=== PATIENT | female | born 1950 | race Caucasian/White ===

== ENCOUNTER → 2018-10-10 | Outpatient (CLI) | payer MEDICARE, OTHER ==
[~2018-10-10] MED LIST: ASPIRIN EC81 M1; LISINOPRIL10 MG; PERCOCET 5-3251 EACH PO
== END ==
LOC: M.RAD 09:54
DX: Z12.31 Encounter for screening mammogram for malignant neoplasm of breast (principal)

== ENCOUNTER → 2018-10-12 | Outpatient (CLI) | payer MEDICARE, OTHER | LOC: M.RAD 10-11 09:37 | DX: N63.11 Unspecified lump in the right breast, upper outer quadrant (principal) ==

== ENCOUNTER → 2018-10-23 | Outpatient (CLI) | payer MEDICARE, OTHER ==
--- NOTE | 2018-10-26 15:07 | PATH ---
[address] [address] PATHOLOGY RPT PROCEDURE Name: ROYA MACEDO Room: [facility].#: [id number] Admission: 10/23/18 Date of : 52 Discharge: Report #: [id number] Path Case #: [id number] [facility] Accession Number: [id number] . 01 Material submitted: . PART A: breast - RIGHT BREAST NODULE. Modifiers: right PART B: breast - RIGHT BREAST CALCIFICATIONS. Modifiers: right . 01 Clinical history: . A. Right breast nodule, stereotactic biopsy B. Right breast calcifications, stereotactic biopsy . 02 Diagnosis: A. 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 SEE COMMENT. . B. Right breast calcifications, stereotactic biospy: - DCIS, NUCLEAR GRADE II, CRIBRIFORM TYPE WITH FOCAL NECROSIS, SPANNING 3 MM, WITH CALCIFICATIONS. SEE COMMENT. (SHELDON:clyde; 10/26/2018) QMS/10/26/2018 . 02 Comment: A. Specimen type: Stereotactic biopsy Tumor site: Right breast Tumor quantitation: Approximately 20% of submitted tissues (A) Histologic type: Ductal adenocarcinoma Histologic grade: Low grade Tubules, nuclei and mitoses: 2, 2, 1 LVSI: Not identified Microcalcifications: Identified Markers: Breast tumor profile pending Block: A2 . Several cores in A2 (only) show a well-circumscribed nodule of infiltrating ductal adenocarcinoma. Properly controlled immunohistochemical stains performed on A2 show the following results, supporting the diagnosis: . P63: Negative Smooth muscle myosin heavy chain: Negative . Diagnostic infiltrating tumor is seen only in A2 and separate from the invasive tumor, seen in A3, is intermediate nuclear grade DCIS suggesting possible extensive intraductal component. Small foci of DCIS are also seen in specimen B. Breast tumor profile studies are pending [place] [place] [address] PATHOLOGY RPT PROCEDURE Name: ROYA MACEDO Room: [facility]#: [id number] Admission: 10/23/18 Date of : 52 Discharge: Report #: [id number] Path Case #: [id number] will be the subject of an addendum report. Specimens A and B reviewed with Dr. Giorgi Becerril, who agrees with the diagnoses. . Krista (acting [facility] Breast Navigator) notified at approximately 1255 on 10/26/2018. . (SHELDON:clyde; 10/26/2018) . 02 Electronically signed: . Mario Davisdon MD, Pathologist NPI- [id number] . 01 Gross description: . A. Received in formalin labeled "Roya Macedo, right breast nodule," are multiple needle cores of yellow-marquez fibrofatty tissue measuring 2.8 x 2.4 x 0.4 cm in aggregate dimensions. The tissue is submitted in its entirety in cassettes A1 through A3. The cold ischemic time is 7 minutes. The total formalin fixation time is greater than 7 hours and less than 72 hours. . B. Received in formalin labeled "Roya Macedo, right breast calcifications," are multiple needle cores of yellow-marquez fibrofatty tissue measuring 1.8 x 1.5 x 0.5 cm in aggregate dimensions. Additionally received in the same container is a blue plastic cassette containing multiple needle cores of yellow-marquez fibrofatty tissue measuring 2.8 x 1.8 x 0.5 cm in aggregate dimensions. The tissue in the cassette is transferred to cassette B1 and the remaining tissue is submitted in its entirety in cassettes B2 and B3. The cold ischemic time is 7 minutes. The total formalin fixation time is greater than 7 hours and less than 72 hours. (TSD; 10/23/2018) TOB/TOB . 02 Pathologist provided ICD-10: C50.911, D05.11 . 02 CPT . 627380, 796796 Specimen Comment: A courtesy copy of this report has been sent to Specimen Comment: [phone], , . Specimen Comment: Report sent to ,DR MCMILLAN / DR WOODALL Performed at: [address], [place], [place] [id number] MD Aric Lind MD Phone: [phone] Performed at: [facility] [address], [place], [place] [id number] MD Mario Davidson MD Phone: [phone]
== END | disposition home or self-care (01) ==
LOC: M.RAD 11:00
DX: C50.911 Malignant neoplasm of unspecified site of right female breast (principal); R92.1 Mammographic calcification found on diagnostic imaging of breast; Z79.82 Long term (current) use of aspirin; Z79.891 Long term (current) use of opiate analgesic; Z79.899 Other long term (current) drug therapy

== ENCOUNTER → 2018-11-07 | Outpatient (CLI) | payer MEDICARE, OTHER | LOC: M.LAB 12:18 → M.MRI 14:30 | PROVIDERS: Surgery | DX: N63.22 Unspecified lump in the left breast, upper inner quadrant (principal) ==

== ENCOUNTER → 2018-11-12 | Outpatient (CLI) | payer MEDICARE, OTHER ==
--- NOTE | 2018-11-14 10:07 | PATH ---
[address] [address] PATHOLOGY RPT PROCEDURE Name: BRENDA MACEDO ELDER Room: [facility] Issa#: [id number] Admission: 11/12/18 Date of : 52 Discharge: Report #: [id number] Path Case #: [id number] [facility] Accession Number: [id number] . 01 Material submitted: . breast - LEFT BREAST, 2:00, 6CM FROM NIPPLE. Modifiers: left, 2:00 . 01 Clinical history: . 0.48 x 0.23 x 0.56 cm mass . 02 Diagnosis: Breast mass, left, core needle biopsy: - Adipose tissue and scant ductal epithelium with focal microscopic simple cysts - Tiny focal area of fibrosis. - No evidence of atypia or malignancy. (GLEN:celeste; 11/13/2018) MBVernon/11/14/2018 . 02 Comment: The findings in this case may or may not account for the presence of a "breast mass". Clinical correlation is recommended. . This case has also been reviewed by Dr. Sean Golden who agrees with the diagnosis. (CHRISM:celeste; 11/13/2018) . 02 Electronically signed: . Gonsalo Greene MD, Pathologist NPI- [id number] . 01 Gross description: . Received in formalin labeled "Brenda Macedo, left breast 2:00 6 cm FN," are multiple needle cores of yellow-marquez fibrofatty tissue measuring 3.1 x 2.9 x 0.6 cm in aggregate dimensions. The tissue is submitted in its entirety in cassette A1 through A3. The cold ischemic time is 2 minutes. The total formalin fixation time is approximately 8 hours. (TSD; 11/12/2018) TOB/TOB . 02 Pathologist provided ICD-10: N60.02, N60.32 . 02 CPT . 837724 Specimen Comment: A courtesy copy of this report has been sent to Specimen Comment: [phone], , . Specimen Comment: Report sent to ,DR MCMILLAN / [place] [address] PATHOLOGY RPT PROCEDURE Name: BRENDA MACEDO Room: [facility]#: [id number] Admission: 11/12/18 Date of : 52 Discharge: Report #: [id number] Path Case #: [id number] Performed at: 01 [facility] [place] [address], [place], [place] [id number] MD Aric Lind MD Phone: [phone] Performed at: [address] [facility] [address] [place] [id number] MD Mario Davidson MD Phone: [phone]
== END | disposition home or self-care (01) ==
LOC: M.ULTRA 09:21
DX: N60.02 Solitary cyst of left breast (principal); N60.32 Fibrosclerosis of left breast; I10 Essential (primary) hypertension; Z79.82 Long term (current) use of aspirin; Z79.899 Other long term (current) drug therapy; Z79.891 Long term (current) use of opiate analgesic; Z98.51 Tubal ligation status

== ENCOUNTER → 2019-05-21 | Outpatient (CLI) | payer MEDICARE, OTHER | LOC: M.CT 08:50 | DX: K76.0 Fatty (change of) liver, not elsewhere classified (principal); C50.411 Malignant neoplasm of upper-outer quadrant of right female breast; J98.4 Other disorders of lung; I25.10 Atherosclerotic heart disease of native coronary artery without angina pectoris; I70.0 Atherosclerosis of aorta; M51.37 Other intervertebral disc degeneration, lumbosacral region; N28.89 Other specified disorders of kidney and ureter; Z17.0 Estrogen receptor positive status [ER+]; Z90.710 Acquired absence of both cervix and uterus; Z90.722 Acquired absence of ovaries, bilateral ==

== ENCOUNTER → 2019-06-04 | Outpatient (CLI) | payer MEDICARE, OTHER | LOC: M.ULTRA 05-30 09:00 | DX: N28.1 Cyst of kidney, acquired (principal); N28.89 Other specified disorders of kidney and ureter; C50.411 Malignant neoplasm of upper-outer quadrant of right female breast; Z17.0 Estrogen receptor positive status [ER+] ==